=== PATIENT | female | born 1985 | race Caucasian/White ===

== ENCOUNTER 2019-03-31 18:32 | Emergency (ER) | payer OTHER ==
[~2019-03-31] VITALS: Ht 160 cm; Wt 64.0 kg
[~2019-03-31 18:32] MED LIST: BIRTH CONTORL; ERYTHROMYCIN E3.5 G1 OPHTHALMIC; NORCO 5-325 TA1 EACH PO
[2019-03-31 18:40] VITALS: BP 109/59
[2019-03-31] MEDS ORDERED: FLEXERIL PO (18:50)
== END 2019-03-31 18:58 | disposition home or self-care (01) ==
LOC: M.ERS 18:32
DX: S16.1XXA Strain of muscle, fascia and tendon at neck level, initial encounter (principal); Z90.49 Acquired absence of other specified parts of digestive tract; V89.2XXA Person injured in unspecified motor-vehicle accident, traffic, initial encounter; Y93.89 Activity, other specified; Y92.89 Other specified places as the place of occurrence of the external cause; Y99.8 Other external cause status

== ENCOUNTER → 2020-06-25 | Emergency (ER) | payer OTHER ==
[~2020-06-25] VITALS: Ht 160 cm; Wt 59.0 kg
[~2020-06-25] MED LIST changes: +FLEXERIL PO
[2020-06-25 14:11] VITALS: BP 124/85
== END ==
LOC: M.ERS 13:02
DX: U07.1 COVID-19 (principal); Z90.49 Acquired absence of other specified parts of digestive tract

== ENCOUNTER 2020-07-04 17:19 | Emergency (ER) | payer OTHER ==
[~2020-07-04] VITALS: Ht 160 cm; Wt 59.0 kg
[2020-07-04 18:37] VITALS: BP 118/76
== END 2020-07-04 18:37 | disposition home or self-care (01) ==
LOC: M.ERS 17:19
DX: Z20.828 Contact with and (suspected) exposure to other viral communicable diseases (principal)

== ENCOUNTER 2021-08-12 12:14 | Emergency (ER) | payer OTHER ==
[~2021-08-12] VITALS: Ht 160 cm; Wt 59.0 kg
[2021-08-12 13:00] LABS: INFLUENZA A ANTIGEN Negative (Negative); INFLUENZA B ANTIGEN Negative (Negative)
[2021-08-12 13:52] VITALS: BP 125/65
== END 2021-08-12 13:54 | disposition home or self-care (01) ==
LOC: M.ERS 12:14
PROVIDERS: Nurse Practitioner Family
DX: U07.1 COVID-19 (principal); Z90.49 Acquired absence of other specified parts of digestive tract